=== PATIENT | female | born 1990 | race Caucasian/White ===

== ENCOUNTER 2017-06-26 20:46 | Emergency (ER) | payer OTHER ==
[~2017-06-26] VITALS: Ht 167.6 cm; Wt 84.2 kg
[~2017-06-26 20:46] MED LIST: FIORTAB4 PO; PENI500T PO; Z.0.NO CURRENT MEDS
[2017-06-26 20:52] VITALS: BP 123/70; PULSE 96; RESP 18; TEMP 98; O2SAT 98
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
[2017-06-26] MEDS: CYCLOBENZAPRINE HCL 10 MG TAB PO ONE (21:54)
[2017-06-26] MEDS: IBUPROFEN 600 MG TAB PO ONE (21:55)
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
[2017-06-26] MEDS ORDERED: CYCL10TA PO (23:01)
== END 2017-06-26 23:13 | disposition home or self-care (01) ==
LOC: PHEFT 20:46
DX: S39.012A Strain of muscle, fascia and tendon of lower back, initial encounter (principal); M54.2 Cervicalgia; R51 Headache; V89.2XXA Person injured in unspecified motor-vehicle accident, traffic, initial encounter; F17.200 Nicotine dependence, unspecified, uncomplicated
CPT/HCPCS: 71045; 72050; 72072; 72110; 84703; 99284